=== PATIENT | male | born 1945 | race Caucasian/White ===

== ENCOUNTER 2025-04-20 08:24 | Outpatient (CLI) | payer MEDICARE ==
[~2025-04-20 08:24] MED LIST: ASPI-1264 PO; ATOR40TA PO; HYDR-3965 PO
[2025-04-20 08:59] LABS: TOTAL HEMOGLOBIN 11.8 G/dl (13.5-17.5)
[2025-04-20] MEDS: albuterol 2.5 MG/3 ML nebule NEB ONE (09:47)
[2025-04-20 09:51] VITALS: PULSE 95; RESP 18; O2SAT 98
[2025-04-20 10:23] VITALS: PULSE 93; RESP 16
--- NOTE | 2025-04-20 16:34 | PROCEDURE NOTE - Respiratory ---
Procedure Note-Respiratory Providers to Copies To 1: LESLIE WILSON MD Procedure Name: This is a complete pulmonary function study dated April 20, 2025. Hemoglobin measurement was done as part of the study. Spirometry measurements: There is mild reduction in both the forced vital capacity and the FEV1. The FEV1 ratio is normal or slightly reduced. Some of the flow rates are somewhat reduced. After inhaled bronchodilator the FEV1 and the flow rates show significant improvement. Lung volume measurements: The total lung capacity is slightly diminished. The functional residual capacity and the residual volume measurements are normal. Lung diffusion measurement: The DLCO measurement is normal. It is noted that the hemoglobin measurement shows borderline anemia with hemoglobin measuring at 11.8 grams/deciliter. Airway resistance measurement: The airway resistance is normal. Overall conclusion: This study shows mild abnormality. There is evidence for mild obstructive ventilatory defect which improves with bronchodilator medication. This suggests the diagnosis of mild asthma. In addition there is evidence for mild restrictive ventilatory defect. This restrictive lung process may possibly be related to the patient's history of asbestos exposure. The lung diffusion capacity is normal. The patient shows evidence of borderline anemia. We have no previous studies for comparison. Bronchodilator therapy may very well help this patient improve. CHAR BOBO MD Apr 20, 2025 16:34
== END 2025-04-20 23:59 | disposition home or self-care (01) ==
LOC: RT 08:24
PROVIDERS: ATTEND Internal Medicine
DX: R06.02 Shortness of breath (principal)
CPT/HCPCS: 85018; 94060; 94727; 94729; 94760